=== PATIENT | female | born 1990 ===

== ENCOUNTER → 2023-08-15 13:27 | Outpatient (AMB) | payer OTHER, SELFPAY ==
[2023-08-15 13:48] VITALS: BP 112/64; PULSE 74; RESP 15; TEMP 37.1; O2SAT 97; BMI 26.9
--- NOTE | 2023-08-15 13:48 | MHC.OFFWIV ---
Intake Vital Signs 08/15/23 13:48 Height 5 ft 5 in Weight 161 lb 8 oz BMI 26.9 BP 112/64 Blood Pressure Location Lt brachial Position Sitting Respiration 15 Pulse 74 Pulse Source Pulse Oximeter Temp 98.7 F Temp Source Oral Pulse Oximetry (%) 97 Oxygen Delivery Method Room Air Intake Visit Reasons: Headache fever stuffiness Intake Note: Patient reports she has had headache, fever, bodyaches, stuffiness, running nose, rapid heart, chest congestion x4 days. 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 Accompanied by: Self / Same As Patient Allergies No Known Allergies Allergy (Verified 08/15/23 14:21) Medication List - Last Reconciled 08/15/23 by ALFREDO Xavier- sertraline 100 mg PO DAILY Do you need a note to return to daycare/school/sports/work: Yes HPI HPI Comments History of Present Illness Details Here for flu like sx started on tuesday the next day fever 101.8, headache, sinus pressure, cough, sore throat, bodyaches better since onset however feels tightness in chest and racing heart at times Used several OTC meds w/ short lived relief Did not get flu shot this season PFSH Social History Patient Tobacco Use Status: Never used Tobacco Review of Systems Const All systems reviewed & are unremarkable except as noted in HPI and below Physical Exam Vital Signs: Last Vital Signs Temp 98.7 F 08/15/23 13:48 Pulse 74 08/15/23 13:48 Resp 15 08/15/23 13:48 BP 112/64 08/15/23 13:48 Pulse Ox 97 08/15/23 13:48 Oxygen Delivery Method Room Air 08/15/23 13:48 BMI result Body Mass Index 26.9 Const Other: Awake alert NAD mildly ill-appearing Sclera and conjunctiva clear bilat Nasal congestion, nares clear, turbinates erythematous TM intact and clear bilat MMM, pharynx WNL RRR LS CTAB Assessment & Plan Assessment & Plan (1) Flu-like symptoms: Code(s): R68.89 - Other general symptoms and signs (2) Influenza: Code(s): J11.1 - Influenza due to unidentified influenza virus with other respiratory manifestations Plan: Viral swab positive for influenza type A. Patient called at 12:52 on 08/16/2023 with the results. Tamiflu called in to local pharmacy Plan This note is constructed using voice recognition software. While every effort has been made to ensure accuracy in market intelligence consultant, still errors may have been included Sometimes, these errors may affect the content or meaning of the given sentence . Total time spent caring for the patient today was 30 minutes. This includes time spent before the visit reviewing the chart, time spent during the visit, and time spent after the visit on documentation Orders: Orders SARS-CoV2/FLU/RSV Today R09.89 - Other specified symptoms and signs involving the circulatory and respiratory systems Medications: New benzonatate 100 mg PO TID 10 days PRN 30 caps 1RF cough fluticasone propionate 50 mcg/actuation administer into each nostril 1 spray intranasal BID 16 grams 0RF oseltamivir (Tamiflu) 75 mg PO Q12H 10 caps 0RF 5 days Patient Instructions: Influenza (flu) is an infection in the lungs and breathing passages. It is caused by the influenza virus. There are different strains, or types, of the flu virus from year to year. Unlike the common cold, the flu comes on suddenly and the symptoms can be more severe. These symptoms include a cough, congestion, fever, chills, fatigue, aches, and pains. These symptoms may last for a few weeks. Although the flu can make you feel very sick, it usually doesn't cause serious health problems. Home treatment is usually all you need for flu symptoms. But your doctor may prescribe antiviral medicine to prevent other health problems, such as pneumonia, from developing. The risk of other health problems from the flu is highest for young children (under 5), older adults (over 65), women, people with long-term health conditions, people who live in nursing homes or long-term care centres, and indigenous peoples. How can you care for yourself at home? Get plenty of rest. Drink plenty of fluids. If you have to limit fluids because of a health problem, talk with your doctor before you increase the amount of fluids you drink. Take an fpow-alu-gxnqrhx pain medicine if needed, such as acetaminophen (Tylenol), ibuprofen (Advil, Motrin), or naproxen (Aleve), to relieve fever, headache, and muscle aches. Read and follow all instructions on the label. No one younger than 18 should take aspirin. It has been linked to Luc syndrome, a serious illness. Take any prescribed medicine exactly as directed. Do not smoke. Smoking can make the flu worse. If you need help quitting, talk to your doctor about stop-smoking programs and medicines. These can increase your chances of quitting for good. If the skin around your nose and lips becomes sore, put some petroleum jelly (such as Vaseline) on the area. To ease coughing: Suck on cough drops or plain, hard candy. Try an irds-xus-zhyzrme cough or cold medicine. Read and follow all instructions on the label. Raise your head at night with an extra pillow. This may help you rest if coughing keeps you awake. To avoid spreading the flu Wash your hands regularly, and keep your hands away from your face. Stay home from school, work, and other public places until you are feeling better and your fever has been gone for at least 24 hours. The fever needs to have gone away on its own without the help of medicine. Ask people living with you to talk to their doctors about preventing the flu. They may get antiviral medicine to keep from getting the flu from you. To prevent the flu in the future, get the flu vaccine every fall. Encourage people living with you to get the vaccine. Cover your mouth when you cough or sneeze. If you can, cough or sneeze into the bend of your elbow, not your hands. When should you call for help? Call 911 anytime you think you may need emergency care. For example, call if: You have severe trouble breathing. You have a seizure. Call your doctor or nurse advice line now or seek immediate medical care if: You have trouble breathing. You have a fever with a stiff neck or a severe headache. You have pain or pressure in your chest or belly. You have a fever or cough that returns after getting better. You feel very sleepy, dizzy, or confused. You are not urinating. You have severe muscle pain. You have severe weakness, or you are unsteady. You have medical conditions that are getting worse Watch closely for changes in your health, and be sure to contact your doctor or nurse advice line if: You do not get better as expected. You are having a problem with your medicine. Coding Level of Care Code New Pt Level 3 (83479) Diagnoses Flu-like symptoms R68.89 Influenza J11.1
== END ==
PROVIDERS: Visit Provider Nurse Practitioner Family
DX: R68.89 Other general symptoms and signs (principal); J11.1 Influenza due to unidentified influenza virus with other respiratory manifestations
CPT/HCPCS: 99203

== ENCOUNTER 2023-08-15 14:21 | Outpatient (REF) | payer OTHER, SELFPAY ==
[2023-08-16 12:43] LABS: Influenza A PCR POSITIVE (Negative); Influenza B PCR NEGATIVE (Negative); Resp Syncy Virus RNA Qual PCR NEGATIVE (Negative); SARS COV2 PCR INHOUSE NEGATIVE (Negative)
== END 2023-08-15 14:22 | disposition home or self-care (01) ==
LOC: HO.LAB 14:21
PROVIDERS: Visit Provider Nurse Practitioner Family
DX: Z11.52 Encounter for screening for COVID-19 (principal); Z20.822 Contact with and (suspected) exposure to COVID-19; R09.89 Other specified symptoms and signs involving the circulatory and respiratory systems
CPT/HCPCS: 0241U